=== PATIENT | female | born 1985 | race Caucasian/White ===

== ENCOUNTER 2016-08-23 11:06 | Inpatient (IN) | payer OTHER ==
[2016-08-23] MEDS ORDERED: MISOPROSTOL 200 MCG TABLET ONE (16:15)
[2016-08-23] MEDS ORDERED: OXYTOCIN IN LR 500 ML IV ONE (16:36)
[2016-08-23] MEDS ORDERED: PENICILLIN G POTASSIUM 5 MMU in NS 0.9% (MINI-BAG PLUS) 100 ML IV ONE (16:36)
[2016-08-23] MEDS ORDERED: LACTATED RINGERS 1,000 ML IV SCH (16:45)
[2016-08-23] MEDS ORDERED: IV START KIT ONE (16:47)
[2016-08-23] MEDS ORDERED: MINERAL OIL 25 ML BOT ONE (16:48)
[2016-08-23] MEDS ORDERED: OXYTOCIN 10 UNITS/ML VIAL ONE (16:48)
[2016-08-23] MEDS ORDERED: PUMP TUBING ONE (16:49)
[2016-08-23] MEDS ORDERED: EPIDURAL PUMP SET ONE (16:49)
[2016-08-23] MEDS ORDERED: LIDOCAINE 1% (PRES FREE) 30 ML VIAL ONE (16:49)
[2016-08-23] MEDS ORDERED: LIDOCAINE Viscous 2% 15 ML UDCUP ONE (16:49)
[2016-08-23] MEDS ORDERED: PENICILLIN G POTASSIUM 5 MMU VIAL ONE ×2 (16:51→16:54)
[2016-08-23] MEDS ORDERED: FENTANYL/ROPIVACAINE EPIDURAL 250 ML EP ONE (16:54)
[2016-08-23] MEDS ORDERED: NS 0.9% (MINI-BAG PLUS) 100 ML IV ONE (16:56)
[2016-08-23 17:07] LABS: HEMATOCRIT 39.8 % (37.0-47.0); HEMOGLOBIN 13.4 gm/l (12.0-16.0); MEAN CELL VOLUME 86.1 fl (81.0-99.0); MEAN CORPUSCULAR HGB CONC 33.7 g/dl (33.0-37.0); RED CELL DISTRIBUTION WIDTH 12.3 % (11.5-14.5)
--- NOTE | 2016-08-23 17:22 | PCMAN ---
OB Admission Note - History : 2 Term: 1 : 0 Abortions (S&E): 0 Livin EDC:: 08/17/16 Gestational Age (weeks): 40 Days (#/7): 6 Admit Cervical Dilation:: 5 Admit Cervical Effacement (%):: 90 Admit Station:: -1 Admit Presentaton:: vertex LOT Membrane Status: Intact Contractions: Yes Contraction Frequency:: q 3-5 Heart Rate:: 130 Status:: category 1 EFW:: 7# Summary of Course:: Care from 9 weeks. Dates by LMP and early exam. Care complicated by hypothyroidism -on 5 mg Liothyronine throughout . Also reported an episode of numbness in hands, difficulty speaking at 18 weeks. Sx resolved in 20 minutes and never recurred. Was referred to neurology but does not appear to have gone. Participated in Centering care. Is GBS positive and had normal postdates testing this AM. Membranes swept at that time with onset of labor within a few hours. - Labs Blood Type: A (+) positive Hct/Hgb:: 13.9 Rubella Status: Immune GBS Status: Positive Abnormal Labs: None - Physical Exam Psych/Mental Status: Mood/Affect Appropriate Lungs: Clear to Auscultation Bilaterally Cardiovascular: Regular Rate and Rhythm Genitourinary: Normal Female Genitalia Rectal Exam: Deferred - Problems (1) Active labor at term Status: Acute Code: [id number] Assessment/Plan: P: GBS prophylaxis Epidural for pain control AROM when 2nd dose of penicillin in Anticipate
[2016-08-23] MEDS ORDERED: SODIUM CHLORIDE 0.9% 500 ML IV PRN (17:30)
[2016-08-23] MEDS ORDERED: EPHEDRINE SULFATE 50 MG/ML 1ML VIAL IV PRN (17:30)
[2016-08-23] MEDS ORDERED: NALBUPHINE HCL 20 MG/ML AMP IV PRN (17:30)
[2016-08-23] MEDS ORDERED: LACTATED RINGERS 500 ML IV PRN (17:30)
[2016-08-23] MEDS ORDERED: DIPHENHYDRAMINE HCL 50 MG/1 ML VIAL IV PRN (17:30)
[2016-08-23] MEDS ORDERED: METOCLOPRAMIDE HCL 5 MG/ML 2ML VIAL IV PRN (17:30)
[2016-08-23] MEDS ORDERED: NALOXONE HCL 0.4 MG/ML VIAL IV PRN (17:30)
[2016-08-23] MEDS ORDERED: ONDANSETRON 4 MG/2ML 2 ML VIAL IV PRN (17:30)
[2016-08-23] MEDS: LACTATED RINGERS 1,000 ML IV PRN (17:30)
[2016-08-23 17:52] VITALS: BMI 29.0
[2016-08-23] MEDS ORDERED: EPIDURAL PROCEDURE TRAY ONE (17:57)
[2016-08-23] MEDS ORDERED: LIOTHYRONINE 5 MCG TABLET PO SCH (20:01)
[2016-08-23] MEDS ORDERED: PENICILLIN G 3 MIL UNIT PREMIX 50 ML IV ONE (20:10)
--- NOTE | 2016-08-23 20:11 | PDOC36 ---
Provider Note Subject: Labor Progress Note Note: S: Charles feels that the epidural is working well and asks when to use the bolus. Denies BLANCAS, vision changes, epigastric pain. O: She is resting in bed and supported by her mother and her partner, Dayne. VS 138/74 HR 68 T 36.6C Elevated BP's noted in chart review at 1630 and 1730, now normotensive since 1736 SVE 7/90/-1/soft BSL 145, pos accels, no decels, moderate variability ctx q 3-6 mins, lasting 60-120 seconds Leopolds EFW 7.25lbs, back on maternal left A: Active Labor GBS pos x 1 dose PCN prophylaxis BOWI Fetus Cat 1 P: CEFM Monitor BPs closely and send labs if another elevated BP is noted. Pt consented to membrane sweep with SVE. Membranes swept at this time. Recheck after 2nd dose PCN is completed, consider AROM Anticipate
[2016-08-23] MEDS: PENICILLIN G 3 MIL UNIT PREMIX 3 MMU in Premix (D5W) 50 ml 1 EACH IV SCH (20:29)
--- NOTE | 2016-08-23 23:03 | PDOC36 ---
Provider Note Subject: Labor Progress Note Note: S: Charles is still comfortable with the epidural. She is feeling more pressure with some contractions. She denies BLANCAS, vision changes, epigastric pain. She is having some mild itching from the epidural. O: VS BP 123/68 HR 80 T36.9C SVE deferred BSL 130 moderate variability, accels present, no decels ctx q 4 mins lasting 60-80 seconds AROM at 2055 with clear fluid A: 31y/o at 40w6d Active Labor GBS pos x 2 doses PCN prophylaxis ruptured x 2 hours afebrile normotensive Fetus Cat 1 P: Expectant management Position changes, peanut ball Continue to monitor BP closely CEFM Recheck in 2 hours or when clinically indicated Anticipate
[2016-08-24] MEDS ORDERED: PENICILLIN G 3 MIL UNIT PREMIX 50 ML IV ONE (00:32)
[2016-08-24] MEDS: PENICILLIN G 3 MIL UNIT PREMIX 3 MMU in Premix (D5W) 50 ml 1 EACH IV SCH (00:42)
[2016-08-24] MEDS: LACTATED RINGERS 1,000 ML IV PRN (00:42)
[2016-08-24] MEDS ORDERED: MISOPROSTOL 200 MCG TABLET PR ONE (01:14)
[2016-08-24] MEDS ORDERED: MAGNESIUM HYDROXIDE 30 ML UDCUP PO PRN (01:34)
[2016-08-24] MEDS ORDERED: BENZOCAINE/MENTHOL 60 APPLIC/BOT TP PRN (01:34)
[2016-08-24] MEDS ORDERED: ACETAMINOPHEN 325 MG TABLET PO PRN (01:34)
[2016-08-24] MEDS ORDERED: LANOLIN 50 APPLIC/7G TUBE TP PRN (01:34)
[2016-08-24] MEDS ORDERED: CALCIUM CARBONATE 500 MG TAB.CHEW PO PRN (01:34)
[2016-08-24] MEDS ORDERED: LACTATED RINGERS 1,000 ML ONE (01:48)
[2016-08-24 01:49] LABS: HEMATOCRIT 33.3 % (37.0-47.0); HEMOGLOBIN 11.2 gm/l (12.0-16.0); MEAN CELL VOLUME 86.7 fl (81.0-99.0); MEAN CORPUSCULAR HEMOGLOBIN 29.2 pg (27.0-31.0); MEAN CORPUSCULAR HGB CONC 33.6 g/dl (33.0-37.0); RED CELL DISTRIBUTION WIDTH 12.3 % (11.5-14.5)
--- NOTE | 2016-08-24 02:08 | PCMDEL ---
Delivery Note - Labor 1st stage (hr/min):: 9h55 min 2nd stage (hr/min):: 6 min 3rd stage (hr/min):: 5 min Total (hr/min):: 10h 1 min Pushed (hr/min):: 6 min - Delivery Delivery (Date): 08/24/16 Delivery (Time): 00:58 Gender: Male Presentation: Cephalic Position: OA Umbilical Cord: 3 Vessel, Nuchal Cord Delayed Cord Clamping:: 2-3 min 1 Minute Total: 8 5 Minute Total: 9 Placenta:: intactmoreno EBL:: 600 Perineum:: intact Suture:: none Anesthesia/Meds:: epidural Length ROM:: 5 hours 3 mins Comments:: 1st stage: Charles presented for post dates testing on the morning of 08/23 and had her membranes swept. She returned several hours later in active labor. At 1740 she received an epidural for pain management. She encouraged descent with position changes throughout the day. Progress continued, AROM with clear fluid at 2054. It was noted that her first was induced for gHTN. At the time of the test dose for the epidural was being given she had elevated BPs. These were monitored throughout the day and remained normotensive from 1736 until midnight when moderate range BPs were again noted. Orders were placed for pre- eclampsia labs to be drawn and patient had strong urge to push. FHTs remained Cat 1 throughout first stage. GBS positive with 3 doses PCN prophylaxis. 2nd stage: SVE revealed complete and +1. Preparations were made for delivery. Charles pushed during 3 contractions and with well controlled delivery of the head, birthed a vigorous male , Apgars 8 & 9. Infant delivered OA to SKYLAR and was somersaulted through a nuchal cord. Infant immediately placed on maternal abdomen, was dried and stimulated. Delayed cord clamping between 2-3 minutes. Third stage: AMTSL with IV Pitocin was initiated. A spontaneous gush of blood was noted and the placenta was delivered, grossly intact, Moreno. Trailing membranes teased out with ring forceps. Fundus immediately firm, perineal inspection revealed intact perineum. Another vigorous gush of blood was observed. Atonic uterus firmed with vigorous massage. Manual sweep revealed no clots in the lower uterine segment but bleeding continued. 800 mcg of misoprostol given rectally. Uterine massage continued and bleeding was observed to have stopped. EBL 600mL Pre-eclampsia labs drawn about 1 hour due to rapid second stage. remained skin to skin on maternal abdomen throughout, initiated by 40 minutes after the . Mother and stable and bonding well.
[2016-08-24] MEDS: IBUPROFEN 800 MG TABLET PO PRN ×4 (02:10→22:49)
[2016-08-24 02:12] LABS: ALB/GLOB RATIO 1.1 (>1.0); ALBUMIN 3.1 gm/dL (3.5-5.7); CALCIUM 8.3 mg/dL (8.6-10.3)
[2016-08-24] MEDS: FENTANYL/ROPIVACAINE EPIDURAL 250 ML EP SCH (07:04)
[2016-08-24] MEDS: LACTATED RINGERS 1,000 ML IV SCH (07:05)
[2016-08-24] MEDS: LIOTHYRONINE 5 MCG TABLET PO SCH ×2 (08:17→21:36)
[2016-08-24] MEDS: DOCUSATE SODIUM 100 MG CAPSULE PO SCH (09:17)
[2016-08-24] MEDS ORDERED: PRENATAL VIT/FE FUMARATE/FA 1 TABLET PO SCH (12:00)
[2016-08-25] MEDS: IBUPROFEN 800 MG TABLET PO PRN ×2 (04:58→11:13)
[2016-08-25 06:22] LABS: HEMATOCRIT 30.1 % (37.0-47.0); HEMOGLOBIN 9.9 gm/l (12.0-16.0)
[2016-08-25] MEDS: LIOTHYRONINE 5 MCG TABLET PO SCH (07:39)
[2016-08-25 09:28] VITALS: BP 139/80
[2016-08-25] MEDS: DOCUSATE SODIUM 100 MG CAPSULE PO SCH (11:13)
--- NOTE | 2016-08-25 16:55 | PDOC39B ---
Hospital Course: ADMIT DATE: 08/23/16 DISCHARGE DATE: 08/24/16 ADMISSION DIAGNOSES: Active Labor PROCEDURES: HISTORY OF PRESENT ILLNESS: 31 year old G2 T1 L1 at 41 weeks 0 days presenting with active labor. HOSPITAL COURSE: The patient is ambulating and voiding without difficulty. Denies SOB, dizziness or fatigue. Slept irregularly last night due to interruptions. Pain well managed with PO meds. Bleeding getting on air announcer. exclusively without difficulty; latching well. Reports hx of mild anxiety that was managed without meds. Good support from and family. By day of discharge the patient is stable, well and ready to go home. - Physical Exam Vital Signs: Temp Pulse Resp BP Pulse Ox 97.9 F 72 16 139/80 08/25/16 08:00 08/25/16 08:00 08/25/16 08:00 08/25/16 08:00 General: Afebrile, No Acute Distress Psych/Mental Status: Mood/Affect Appropriate, Judgment/Insight Intact, Bonding Well Breast: Soft, Skin intact, Nipples Intact, No Tenderness Fundus: Firm, Midline, Below Umbilicus Lochia: Light Extremities: Full ROM - Discharge Plan Disposition: Home Instruction Forms: Vaginal Discharge Instructions Additional Instructions: Handout given and reviewed Follow-Up: Mendy Barry CNM [Certified Nurse Sales Outfitter] - 09/12/16 10:00 am
== END 2016-08-25 13:20 | disposition home or self-care (01) | DRG 774 ==
LOC: EDSTATUS 16:13 → FBC 16:14
PROVIDERS: ADMIT Advanced Practice Midwife; ATTEND Advanced Practice Midwife
PROC: 10907ZC Drainage of Amniotic Fluid, Therapeutic from Products of Conception, Via Natural or Artificial Opening (ICD-10-PCS; 2016-08-23)
PROC: 00HU33Z Insertion of Infusion Device into Spinal Canal, Percutaneous Approach (ICD-10-PCS; 2016-08-23)
PROC: 10E0XZZ Delivery of Products of Conception, External Approach (ICD-10-PCS; principal; 2016-08-24)
DX: O99.284 Endocrine, nutritional and metabolic diseases complicating childbirth (principal); O72.1 Other immediate postpartum hemorrhage; E03.9 Hypothyroidism, unspecified; O99.824 Streptococcus B carrier state complicating childbirth; O48.0 Post-term pregnancy; O69.81X0 Labor and delivery complicated by cord around neck, without compression, not applicable or unspecified; O75.89 Other specified complications of labor and delivery; R03.0 Elevated blood-pressure reading, without diagnosis of hypertension; Z3A.40 40 weeks gestation of pregnancy; Z37.0 Single live birth